=== PATIENT | female | born 1980 | race Caucasian/White ===

== ENCOUNTER 2018-12-02 01:00 | Emergency (ER) | payer MEDICAID ==
[~2018-12-02] VITALS: Ht 177.8 cm; Wt 99.8 kg
[2018-12-02 01:02] VITALS: BP_SYST 150
[2018-12-02 01:40] VITALS: BP_SYST 140
== END 2018-12-02 01:40 ==
LOC: SED 01:00
DX: I10 Essential (primary) hypertension (principal); R11.0 Nausea
CPT/HCPCS: 99283